=== PATIENT | female | born 1945 | race Caucasian/White ===

== ENCOUNTER → 2017-03-30 | Outpatient (CLI) | payer MEDICARE ==
[~2017-03-30] MED LIST: ALBUTEROL200 PUFFS/ IH; ALDACTONE 25MG25 MG PO; CETIRIZINE5 MG PO; ENALAPRIL2.5 MG PO; FEXOFENADINE180 MG PO; GLIMEPIRIDE 2MG2 MG PO; GLIMEPIRIDE4 MG PO; JANUVIA100 MG PO; K-DUR 20MEQ TA20 MEQ PO; LANOXIN0.25 MG PO; LASIX20 MG PO; LEVAQUIN500 MG PO; LEVOTHYROXIN0.088 MG PO; MECLIZINE12.5 MG PO; METFORMIN1000 MG PO; NASONEX0.05 MG/AC; NITROQUICK0.4 MG SL; NOVOLOG FLEX100 U/ML SC; PACERONE100 MG PO; POTASSIUM CHLO10 ME3 PO; PREDNISONE 10MG10 MG PO; PREDNISONE 20MG20 MG PO; PREDNISONE2.5 MG PO; PREDNISONE20 MG PO; SPIRONOLACTONE25 MG NG; SYNTHROID0.075 MG PO; THEO-DUR 300MG300 MG PO; ZETIA10 MG PO
--- NOTE | 2017-03-30 11:05 | RADIOLOGY REPORT PS360 ---
BONE DENSITOMETRY(HIP:LT SPINE HISTORY: OSTEOPENIA ORDERING PHYSICIAN: Thalia Peña MD PATIENT AGE: 71 years COMPARISON: None FINDINGS: The BMD at the former is 33% is 0.682 g/sq cm with a T score of -2.3. This is considered Osteopenic according to the World Health Organization criteria. Fracture risk is Moderate. Treatment is advised. IMPRESSION: Osteopenia. Moderate fracture risk. Treatment is advised. Recommend follow-up exam March 2019
--- NOTE | 2017-04-03 12:39 | RADIOLOGY REPORT PS360 ---
. DIG MAMM-SCREEN [facility]LE W/CAD CAD Screening ORDERING PHYSICIAN : Thalia Peña MD PATIENT AGE: 71 years GENDER: Female COMPARISON: Previous mammograms: July 2015 and July 2012 INDICATION: Routine screening no hormones. No new complaints noncontributory family history TECHNIQUE: Standard CC and MLO images were obtained. R2 CAD reviewed. FINDINGS: Moderate breast density on left more evident the right. Prior films are helpful and supportive stable mild inhomogeneous asymmetric appearance the breast. RIGHT BREAST:. Unchanged. No significant new findings LEFT BREAST: Stable Mammogram with no significant new findings. Stable tiny groupings of benign-appearing punctate calcifications deep left breast with no change since a stable last years study. Pacemaker the deep axillary left breast makes positioning difficult. The inframammary fold is not well imaged but appears similar to previous studies.. No significant new findings are included on this study.. IMPRESSION: No significant interval change. Pacemaker makes positioning difficult the left breast with no new findings. Stable mild asymmetry. Moderate density BI-RADS CATEGORY: 2_Benign RECOMMENDED FOLLOWUP: 12M 12 MONTH FOLLOW-UP (A letter has been sent to the patient regarding results of the study.)
== END ==
LOC: RAD 02-16 10:00
DX: Z12.31 Encounter for screening mammogram for malignant neoplasm of breast (principal); Z78.0 Asymptomatic menopausal state; Z13.820 Encounter for screening for osteoporosis
CPT/HCPCS: G0202

== ENCOUNTER → 2017-04-08 | Outpatient (CLI) | payer MEDICARE ==
[2017-04-08 13:36] LABS: HEMOGLOBIN 13.4 g/dL (12.2-16.2); LYMPH # 1.2 K/mm3 (0.7-4.5); LYMPH % 16.6 % (10-50.0)
[2017-04-08 14:28] LABS: BUN 15 mg/dL (7-18)
[2017-04-08 14:30] LABS: GFR (ESTIMATED) 62 ML/MIN (59-)
== END ==
LOC: LAB 12:08
PROVIDERS: Nurse Practitioner Acute Care
DX: K74.60 Unspecified cirrhosis of liver (principal)

== ENCOUNTER → 2017-05-04 | Outpatient (CLI) | payer MEDICARE ==
--- NOTE | 2017-05-04 15:30 | RADIOLOGY REPORT PS360 ---
US ABD(COMPLETE-MULTI ORGANS HISTORY: Cirrhosis follow-up CIRRHOSIS ORDERING PHYSICIAN: RAJ HUFFMAN PATIENT AGE: 71 years COMPARISON: 09/03/2016 FINDINGS: PANCREAS:Unremarkable. No obvious mass or abnormal fluid collection. No ductal dilatation LIVER:Cirrhotic appearance of the liver with coarse echogenicity and small liver size. Portal vein is slightly enlarged at 15 mm. There is hepatopedal flow within the portal vein. There are periportal collateral vessels. RIGHT KIDNEY:Unremarkable. Normal size and echogenicity. No hydronephrosis LEFT KIDNEY:Unremarkable. No hydronephrosis. Normal size and echogenicity. GALLBLADDER: Gallbladder wall is thickened. No stones demonstrated. No pericholecystic fluid. Common bile duct is normal at 4 mm. A small amount sludge in the gallbladder. AORTA:No evidence of aneurysmal dilatation. SPLEEN:Spleen is enlarged at 15 cm ASCITES:None demonstrated. IMPRESSION: 1. Overall no significant change in the cirrhotic appearance of the liver with mildly prominent portal vein with periportal collateral vessels. The remaining support appear to flow within the portal vein 2. Again gallbladder wall with gallbladder sludge
== END ==
LOC: RAD 09:12
DX: K74.60 Unspecified cirrhosis of liver (principal)